=== PATIENT | male | born 1940 ===

== ENCOUNTER 2017-12-14 08:10 | Day surgery (SDC) | payer OTHER ==
[~2017-12-14 08:10] MED LIST: FINASTERIDE1 MG; LIPITOR20 MG PO; OMEPRAZOLE10 MG PO
== END 2017-12-14 17:28 | disposition home or self-care (01) ==
LOC: AMB-ENDOS 08:10
DX: C18.2 Malignant neoplasm of ascending colon (principal); K64.1 Second degree hemorrhoids; K64.8 Other hemorrhoids

== ENCOUNTER 2020-01-16 07:03 | Day surgery (SDC) | payer OTHER | END 2020-01-16 15:30 | disposition home or self-care (01) | LOC: AMB-ENDOS 07:03 | PROVIDERS: ATTEND Colon & Rectal Surgery | DX: K62.89 Other specified diseases of anus and rectum (principal); K64.0 First degree hemorrhoids; Z20.828 Contact with and (suspected) exposure to other viral communicable diseases ==